=== PATIENT | male | born 1990 | race Hispanic/Latino ===

== ENCOUNTER 2023-05-27 21:22 | Emergency (ER) | payer BC ==
[~2023-05-27] VITALS: Ht 177.8 cm; Wt 85.7 kg
[2023-05-27 21:42] VITALS: BP 157/82; PULSE 81; RESP 20; O2SAT 100
[2023-05-27] MEDS ORDERED: TETANUS/DIPHTHERIA TOXOID [ADULT] 0.5 ML VIAL IM ONE (22:30)
== END 2023-05-27 22:59 | disposition home or self-care (01) ==
LOC: EDH 21:22
DX: S61.411A Laceration without foreign body of right hand, initial encounter (principal); W18.09XA Striking against other object with subsequent fall, initial encounter; Y93.89 Activity, other specified; Y92.89 Other specified places as the place of occurrence of the external cause; Y99.8 Other external cause status
CPT/HCPCS: 12001; 90471; 90714